=== PATIENT | female | born 1995 | race Caucasian/White ===

== ENCOUNTER 2017-03-18 21:21 | Emergency (ER) | payer MEDICAID ==
[~2017-03-18] VITALS: Ht 162.6 cm; Wt 81.8 kg
[2017-03-18 21:26] VITALS: BP 141/82
== END 2017-03-19 03:39 | disposition left against medical advice (07) ==
LOC: ER 21:37
DX: R10.9 Unspecified abdominal pain (principal); Z53.21 Procedure and treatment not carried out due to patient leaving prior to being seen by health care provider